=== PATIENT | female | born 1940 | race Two or more races ===

== ENCOUNTER 2024-08-01 10:45 | Inpatient (IN) | payer OTHER ==
[~2024-08-01] VITALS: Ht 152.4 cm; Wt 115.2 kg
[2024-08-01] MEDS ORDERED: COZAAR100 MG PO (14:44)
[2024-08-01] MEDS ORDERED: GLIMEPIRIDE2 MG (14:44)
[2024-08-01] MEDS ORDERED: SERTRALINE20 MG/1 ML (14:45)
[2024-08-01] MEDS ORDERED: ECOTRIN81 MG PO (14:45)
[2024-08-01] MEDS ORDERED: TOPROL XL25 M1 PO (14:45)
[2024-08-01] MEDS ORDERED: LIPITOR80 MG PO (14:46)
[2024-08-01] MEDS ORDERED: ARICEPT10 MG PO (14:46)
[2024-08-01] MEDS ORDERED: AMLODIPINE-OLM1 EAC2 PO (14:47)
[2024-08-01] MEDS ORDERED: CLONAZEPAM0.5 M1 PO (14:47)
[2024-08-01] MEDS ORDERED: TIROSINT50 MCG PO (14:47)
[2024-08-01] MEDS ORDERED: ALENDRONATE SOD70 MG PO (14:48)
[2024-08-01] MEDS ORDERED: ALLEGRA-D 12 H1 EACH PO (14:48)
[2024-08-04] MEDS ORDERED: SUGAMMADEX SODIUM 200 MG/2 ML VIAL IV ONE (11:52)
[2024-08-04] MEDS ORDERED: MORPHINE SULFATE 4 MG/ML CARTRIDGE IV PRN (12:15)
[2024-08-04] MEDS ORDERED: DEXTROSE 50 % IN WATER 0.5 G/ML DISP.SYRIN IV PRN (12:15)
[2024-08-04] MEDS ORDERED: 0.9 % SODIUM CHLORIDE 1,000 ML IV SCH (12:15)
[2024-08-04] MEDS ORDERED: ONDANSETRON HCL 2 MG/ML VIAL IV PRN (12:15)
[2024-08-04] MEDS ORDERED: OxyCODONE HCL 5 MG TABLET (ROXICODONE) PO PRN (12:15)
[2024-08-04] MEDS ORDERED: HYOSCYAMINE SULFATE 0.125 MG TAB.SUBL SL SCH (13:00)
[2024-08-04] MEDS ORDERED: MORPHINE SULFATE 4 MG/ML VIAL IV ONE ×2 (13:05→14:00)
[2024-08-04] MEDS ORDERED: ENALAPRILAT DIHYDRATE 1.25 MG/ML VIAL IV PRN (13:15)
[2024-08-04] MEDS ORDERED: ENALAPRILAT DIHYDRATE 1.25 MG/ML VIAL IV ONE (13:49)
[2024-08-04 13:50] LABS: HEMATOCRIT 37.6 % (36.0-45.00); HEMOGLOBIN 12.2 g/dL (12.0-15.00); MEAN CELL VOLUME 87.9 fL (80.00-100.00); MEAN CORPUSCULAR HEMOGLOBIN 28.4 pg (27.00-32.0); MEAN CORPUSCULAR HGB CONC 32.3 g/dl (32.0-36.0); PLATELET COUNT 140 K/uL (150-450); RED BLOOD COUNT 4.28 M/uL (4.00-6.00); RED CELL DISTRIBUTION WIDTH 17.5 % (11.5-14.5)
[2024-08-04] MEDS ORDERED: ACETAMINOPHEN 500 MG GEL..CAP PO SCH (14:00)
[2024-08-04] MEDS ORDERED: ALBUTEROL SULFATE 3 ML/2.5 MG AMPUL.NEB IH SCH (14:00)
[2024-08-04 14:51] LABS: ALBUMIN 3.4 gm/dL (3.4-5.0); CALCIUM 8.7 mg/dL (8.5-10.1); CREATININE SERUM 0.89 mg/dL (0.55-1.02); GFR 60.57; MAGNESIUM 1.9 mg/dL (1.8-2.4); PHOSPHOROUS 4.6 mg/dL (2.5-4.9); POTASSIUM 3.87 mEq/L (3.5-5.1)
[2024-08-04] MEDS ORDERED: METRONIDAZOLE/SODIUM CHLORIDE 500 MG/100 ML PIGGYBACK IV ONE (16:18)
[2024-08-04] MEDS ORDERED: METRONIDAZOLE/SODIUM CHLORIDE 500 MG/100 ML PIGGYBACK IV SCH (17:00)
[2024-08-04] MEDS ORDERED: GABAPENTIN 300 MG CAPSULE PO SCH (17:00)
[2024-08-04] MEDS ORDERED: POLYETHYLENE GLYCOL 3350 17 GM BLIST.PACK PO SCH (17:00)
[2024-08-04 17:31] VITALS: BP 127/77; O2SAT 100
[2024-08-04 18:27] VITALS: BP 146/69; O2SAT 100
[2024-08-04] MEDS ORDERED: FAMOTIDINE/PF 20 MG/2 ML VIAL IV PUSH SCH (21:00)
[2024-08-04] MEDS ORDERED: CELECOXIB 200 MG CAPSULE PO SCH (21:00)
[2024-08-05 01:21] VITALS: BP 115/57; O2SAT 100
[2024-08-05] MEDS ORDERED: LEVOTHYROXINE SODIUM 50 MCG TABLET PO SCH (06:00)
[2024-08-05 07:21] LABS: HEMATOCRIT 32.1 % (36.0-45.00); HEMOGLOBIN 10.7 g/dL (12.0-15.00); MEAN CELL VOLUME 87.1 fL (80.00-100.00); MEAN CORPUSCULAR HEMOGLOBIN 29.2 pg (27.00-32.0); MEAN CORPUSCULAR HGB CONC 33.5 g/dl (32.0-36.0); RED BLOOD COUNT 3.68 M/uL (4.00-6.00); RED CELL DISTRIBUTION WIDTH 17.6 % (11.5-14.5)
[2024-08-05 07:25] LABS: PLATELET COUNT 129 K/uL (150-450)
[2024-08-05 08:00] VITALS: BP 123/60; O2SAT 100
[2024-08-05 08:05] LABS: ALBUMIN 2.7 gm/dL (3.4-5.0); CALCIUM 8.2 mg/dL (8.5-10.1); CREATININE SERUM 0.88 mg/dL (0.55-1.02); GFR 61.37; MAGNESIUM 2.2 mg/dL (1.8-2.4); PHOSPHOROUS 4.4 mg/dL (2.5-4.9); POTASSIUM 4.79 mEq/L (3.5-5.1)
[2024-08-05] MEDS ORDERED: LOSARTAN POTASSIUM 100 MG TABLET PO SCH (09:00)
[2024-08-05] MEDS ORDERED: CLONAZEPAM 0.5 MG TABLET PO SCH (09:00)
[2024-08-05] MEDS ORDERED: DONEPEZIL HCL 10 MG TABLET PO SCH (09:00)
[2024-08-05] MEDS ORDERED: SERTRALINE HCL 50 MG TABLET PO SCH (09:00)
[2024-08-05] MEDS ORDERED: METOPROLOL SUCCINATE 25 MG TAB.SR.24H PO SCH (09:00)
[2024-08-05 16:00] VITALS: BP 115/70; O2SAT 94
[2024-08-05] MEDS ORDERED: ENOXAPARIN SODIUM 40 MG/0.4 ML SYRINGE SUBCUTANEO SCH (17:00)
[2024-08-06 00:54] VITALS: BP 112/60; O2SAT 95
[2024-08-06 07:38] LABS: HEMATOCRIT 27.5 % (36.0-45.00); HEMOGLOBIN 9.3 g/dL (12.0-15.00); MEAN CELL VOLUME 87.5 fL (80.00-100.00); MEAN CORPUSCULAR HEMOGLOBIN 29.7 pg (27.00-32.0); RED BLOOD COUNT 3.14 M/uL (4.00-6.00); RED CELL DISTRIBUTION WIDTH 17.6 % (11.5-14.5)
[2024-08-06 07:43] LABS: PLATELET COUNT 107 K/uL (150-450)
[2024-08-06 08:00] VITALS: BP 113/53; O2SAT 95
[2024-08-06 08:04] LABS: ALBUMIN 2.4 gm/dL (3.4-5.0); CALCIUM 7.7 mg/dL (8.5-10.1); GFR 52.95; POTASSIUM 4.25 mEq/L (3.5-5.1)
[2024-08-06] MEDS ORDERED: ENOXAPARIN SODIUM 40 MG/0.4 ML SYRINGE SUBCUTANEO SCH (09:00)
[2024-08-06 09:03] LABS: MANUAL PLATELET COUNT 208
[2024-08-06] MEDS ORDERED: SOD FERRIC GLUC COMPLX/SUCROSE 62.5 MG in 0.9 % SODIUM CHLORIDE 50 ML IV SCH (11:00)
[2024-08-06 16:30] VITALS: BP 95/60; O2SAT 96
[2024-08-07] VITALS: BP 125/64; O2SAT 95
[2024-08-07 08:25] VITALS: BP 146/61; O2SAT 95
[2024-08-07] MEDS ORDERED: HYOSCYAMINE0.125 M1 SL (11:39)
[2024-08-07] MEDS ORDERED: PEPCID AC20 MG PO (11:40)
[2024-08-07] MEDS ORDERED: TRAM1TAB98 PO (11:40)
[2024-08-07] MEDS ORDERED: INTESTINEX680 M1 PO (11:40)
== END 2024-08-07 15:17 | disposition home or self-care (01) | DRG 331 ==
LOC: O/R 08-04 06:18 → SURH 08-04 09:30 → SURG 08-04 11:39
PROVIDERS: ADMIT Surgery; ATTEND Surgery
PROC: 07BB4ZZ Excision of Mesenteric Lymphatic, Percutaneous Endoscopic Approach (ICD-10-PCS; 2024-08-04)
PROC: 0DTF4ZZ Resection of Right Large Intestine, Percutaneous Endoscopic Approach (ICD-10-PCS; principal; 2024-08-04 09:30)
DX: C18.1 Malignant neoplasm of appendix (principal); K57.30 Diverticulosis of large intestine without perforation or abscess without bleeding; N73.6 Female pelvic peritoneal adhesions (postinfective); N99.4 Postprocedural pelvic peritoneal adhesions; R59.0 Localized enlarged lymph nodes